=== PATIENT | female | born 1955 | race Caucasian/White ===

== ENCOUNTER 2018-03-10 05:47 | Inpatient (IN) | payer OTHER ==
[~2018-03-10] VITALS: Ht 170.2 cm; Wt 99.8 kg
[~2018-03-10 05:47] MED LIST: CIPROFLOXACIN500 M1 PO; CO Q-1010 MG PO; CYMBALTA20 MG PO; FLAGYL500 MG PO; MECLIZINE HCL25 M1 PO; MULTIVITAMINS; NORCO 5-325 TA1 EACH PO; PRILOSEC 20 MG20 MG PO; VITAMIN D400 UNI1 PO; VITAMIN E400 UNIT
[2018-03-10 06:00] VITALS: BP 129/78
[2018-03-10 06:43] LABS: ABSOLUTE NEUTROPHILS 5.9 thou/uL (1.4-8.2); BASOPHILS 0.6 % (0.0-2.0); EOSINOPHILS 1.5 % (0.0-3.0); HEMATOCRIT 37.1 % (37.0-47.0); HEMOGLOBIN 12.6 gm/dL (12.0-15.0); LYMPHOCYTES 12.9 % (24.0-44.0); MCH 32.2 pg (26.0-34.0); MCV 94.8 fL (80.0-100.0); MONOCYTES 5.5 % (1.0-8.0); PLATELET COUNT 278 thou/uL (150-400); POLYS 79.5 % (36.0-66.0); RBC 3.91 mil/uL (4.20-5.00); RDW 12.4 % (10.5-14.5); WBC 7.4 thou/uL (4.0-11.0)
[2018-03-10 06:51] LABS: CALCIUM 9.4 mg/dL (8.5-10.1); CREATININE 1.1 mg/dL (0.6-1.0); POTASSIUM 3.2 mmol/L (3.5-5.1)
[2018-03-10 06:57] LABS: ALBUMIN 3.5 g/dL (3.4-5.0); DIRECT BILIRUBIN 0.2 mg/dL (<0.1-0.3); TOTAL BILIRUBIN 0.9 mg/dL (<0.1-1.0); TOTAL PROTEIN 7.7 g/dL (6.4-8.2)
[2018-03-10 14:34] VITALS: BP 128/74
[2018-03-10 16:25] VITALS: BP 108/63
[2018-03-10 18:32] VITALS: BP 104/62
[2018-03-10 19:22] VITALS: BP 121/43
[2018-03-11 03:45] VITALS: BP 110/66
[2018-03-11 07:49] VITALS: BP 99/56
[2018-03-11 09:30] LABS: URINE BILIRUBIN NEGATIVE (Negative); URINE BLOOD NEGATIVE (Negative); URINE CLARITY TURBID; URINE COLOR YELLOW; URINE GLUCOSE-RANDOM* NEGATIVE (Negative); URINE KETONES 1+ (Negative); URINE LEUKOCYTES NEGATIVE (Negative); URINE NITRITE NEGATIVE (Negative); URINE PROTEIN (DIPSTICK) NEGATIVE (Negative); URINE SPECIFIC GRAVITY >= 1.030 (1.005-1.035); URINE UROBILINOGEN 0.2 E.U./dl (0.2-1.0)
[2018-03-11 15:28] VITALS: BP 109/59
[2018-03-11 20:00] VITALS: BP 105/63
[2018-03-12 05:00] VITALS: BP 116/63
[2018-03-12 06:21] LABS: ABSOLUTE NEUTROPHILS 3.3 thou/uL (1.4-8.2); BASOPHILS 1.3 % (0.0-2.0); EOSINOPHILS 2.9 % (0.0-3.0); LYMPHOCYTES 32.1 % (24.0-44.0); MCH 32.4 pg (26.0-34.0); MCHC 34.1 g/dL (28.0-37.0); MONOCYTES 7.3 % (1.0-8.0); PLATELET COUNT 244 thou/uL (150-400); POLYS 56.4 % (36.0-66.0); RBC 3.26 mil/uL (4.20-5.00); RDW 12.5 % (10.5-14.5); WBC 5.8 thou/uL (4.0-11.0)
[2018-03-12 06:23] LABS: HEMOGLOBIN 10.6 gm/dL (12.0-15.0)
[2018-03-12 06:25] LABS: CALCIUM 8.7 mg/dL (8.5-10.1); CREATININE 1.1 mg/dL (0.6-1.0); POTASSIUM 3.1 mmol/L (3.5-5.1)
[2018-03-12 09:58] VITALS: BP 118/73
[2018-03-12] MEDS ORDERED: AUGMENTIN 875-1 EACH PO (15:00)
[2018-03-12] MEDS ORDERED: BACLOFEN 10MG T10 MG PO (15:00)
[2018-03-12 15:44] VITALS: BP 118/73
== END 2018-03-12 16:43 | disposition home or self-care (01) | DRG 392 ==
LOC: ER 05:47 → 4E 07:24 → EROBS 07:24 → 4E 16:49 → ENTRNSPT 03-12 16:01 → 4E 03-12 16:43
PROVIDERS: Emergency Medicine; Hospitalist
DX: K57.92 Diverticulitis of intestine, part unspecified, without perforation or abscess without bleeding (principal); M54.30 Sciatica, unspecified side; Z88.6 Allergy status to analgesic agent; Z79.899 Other long term (current) drug therapy; Z90.49 Acquired absence of other specified parts of digestive tract
CPT/HCPCS: 10084

== ENCOUNTER 2021-09-05 21:54 | Emergency (ER) | payer OTHER ==
[~2021-09-05] VITALS: Ht 170.2 cm; Wt 99.8 kg
[~2021-09-05 21:54] MED LIST changes: +AUGMENTIN 875-1 EACH PO; +BACLOFEN 10MG T10 MG PO
[2021-09-05 22:54] LABS: ABSOLUTE NEUTROPHILS 3.6 thou/uL (1.4-8.2); BASOPHILS 1.1 % (0.0-2.0); EOSINOPHILS 2.9 % (0.0-3.0); HEMATOCRIT 37.2 % (37.0-47.0); HEMOGLOBIN 12.3 gm/dL (12.0-15.0); LYMPHOCYTES 39.2 % (24.0-44.0); MCH 31.6 pg (26.0-34.0); MCV 95.7 fL (80.0-100.0); MONOCYTES 7.4 % (1.0-8.0); PLATELET COUNT 300 thou/uL (150-400); POLYS 49.4 % (36.0-66.0); RBC 3.89 mil/uL (4.20-5.00); RDW 12.6 % (10.5-14.5); WBC 7.2 thou/uL (4.0-11.0)
[2021-09-05 22:55] LABS: ANION GAP 7 mmol/L (7-16); BUN 15 mg/dL (7-18); CALCIUM 8.6 mg/dL (8.5-10.1); CHLORIDE 109 mmol/L (98-107); CO2 26 mmol/L (21-32); CREATININE 1.1 mg/dL (0.6-1.0); GLUCOSE 110 mg/dL (74-106); POTASSIUM 3.8 mmol/L (3.5-5.1); SODIUM 142 mmol/L (136-145)
[2021-09-05 23:06] LABS: ALBUMIN 3.7 g/dL (3.4-5.0); LIPASE 186 U/L (73-393); SGOT 16 U/L (15-37); SGPT 23 U/L (14-59); TOTAL BILIRUBIN 0.4 mg/dL (0.2-1.0)
[2021-09-05 23:42] LABS: URINE BILIRUBIN NEGATIVE (Negative); URINE BLOOD NEGATIVE (Negative); URINE CLARITY CLEAR; URINE COLOR YELLOW; URINE GLUCOSE-RANDOM* NEGATIVE (Negative); URINE KETONES NEGATIVE (Negative); URINE LEUKOCYTES-REFLEX NEGATIVE (Negative); URINE NITRITE-REFLEX NEGATIVE (Negative); URINE PROTEIN (DIPSTICK) NEGATIVE (Negative); URINE UROBILINOGEN 0.2 E.U./dl (0.2-1.0)
[2021-09-05] MEDS ORDERED: LEVOTHYROXINE88 MCG PO (23:48)
[2021-09-05] MEDS ORDERED: NEURONTIN 300M300 M2 PO (23:49)
[2021-09-06] MEDS ORDERED: NORCO5 PO (01:28)
[2021-09-06 01:39] VITALS: BP 144/74
--- NOTE | 2021-09-06 15:31 | EKG ---
[place] [address] [place] [address] ELECTROCARDIOGRAM REPORT Name: MAYDA SHRESTHA Room #: DEP JOHNSON Thakur#: [id number] Admission: 09/05/21 Attend Phys: Discharge: 09/06/21 Date of : 53 Report #: [id number] [facility] ED Test Date: 2021-09-05 Test Time: 22:16:55 Pat Name: MAYDA SHRESTHA Department: Room: Gender: F Electrical Contacts Adjuster: no : 1955 Requested By: Matt Brink Order Number: [id number] MD: Rocky Clinton Measurements Intervals [place] Rate: 65 P: 65 MA: 181 QRS: 50 QRSD: 94 T: 54 QT: 420 QTc: 437 Interpretive Statements Sinus rhythm Low voltage, precordial leads Compared to ECG 06/17/2011 14:55:30 Low QRS voltage now present T-wave abnormality no longer present Electronically Signed On 09-06-2021 15:31:17 CDT by Rocky Clinton [email or web address] <ELECTRONICALLY SIGNED> By: Rocky Clinton MD, [facility] 09/06/21 1531 2216 15 Rocky Clinton MD, FACC /EPI
== END 2021-09-06 01:45 | disposition home or self-care (01) ==
LOC: ER 21:54
PROVIDERS: Emergency Medicine
DX: M54.50 Low back pain, unspecified (principal); R10.31 Right lower quadrant pain; Z79.891 Long term (current) use of opiate analgesic; Z79.899 Other long term (current) drug therapy; Z88.5 Allergy status to narcotic agent